=== PATIENT | female | born 1970 | race African-American/Black ===

== ENCOUNTER 2024-01-07 18:51 | Emergency (ER) | payer SELFPAY ==
[~2024-01-07] VITALS: Ht 167.6 cm; Wt 78.3 kg
[2024-01-07 18:58] VITALS: BP 137/68; PULSE 71; TEMP 98.9
[2024-01-07] MEDS ORDERED: Prochlorperazine 10 MG TAB PO ONE (21:15)
[2024-01-07] MEDS ORDERED: metroNIDAZOLE 250 MG TAB PO ONE (21:15)
[2024-01-07] MEDS ORDERED: Azithromycin 250 MG TAB PO ONE (21:15)
[2024-01-07] MEDS ORDERED: cefTRIAXone 500 MG VIAL IM ONE (21:25)
== END 2024-01-07 19:00 | disposition home or self-care (01) ==
LOC: COL.ER 18:51
DX: R69 Illness, unspecified (principal)
CPT/HCPCS: J0696